=== PATIENT | male | born 1925 | race Caucasian/White ===

== ENCOUNTER 2017-02-16 08:11 | Emergency (ER) | payer MEDICARE, OTHER ==
[2017-02-16] MEDS ORDERED: Lidocaine 1% (PF) 30 ML VIAL ONE (08:26)
[2017-02-16 09:04] LABS: #Basophils 0.1 thou/uL (0.0-0.2); #Eosinphils 0.2 thou/uL (0.0-0.7); #Lymphocytes 2.3 thou/uL (1.20-3.40); #Monocytes 0.6 thou/uL (0.11-0.59); %Monocytes 7.4 % (0.0-10.0); Mean Platelet Volume 7.4 fL (7.4-10.4); Red Blood Cell (RBC) Count 4.57 mill/uL (4.70-6.10); White Blood Cell (WBC) Count 8.3 thou/uL (4.8-10.8)
[2017-02-16 09:11] LABS: Prothrombin Time 13.6 SEC (12.0-14.7)
[2017-02-16 09:38] LABS: Anion Gap 15 mmol/L (10-20); BUN (Urea Nitrogen) 23 mg/dL (8.4-25.7); CK (CPK) 46 U/L (30-200); Calc. Creatinine Clearance 0 mL/min (70-130); Calcium 9.1 mg/dL (7.8-10.44); Carbon Dioxide 27 mmol/L (23-31); Chloride 102 mmol/L (98-107); Estimated GFR-MDRD 73
[2017-02-16 09:49] LABS: Troponin I Less than 0.010 ng/mL (< 0.028)
[2017-02-16] MEDS ORDERED: cloNIDine HCl 0.1 MG TAB ONE (11:32)
--- NOTE | 2017-02-16 11:39 | CT ---
CT BRAIN WITHOUT CONTRAST: HISTORY: An 89-year-old with a history of fall. Trauma to head. FINDINGS: CT brain is obtained. There is diffuse cortical atrophy noted. A small left parietal scalp hematoma is seen. No evidence of acute intracranial masses, hemorrhages, strokes, or contusions seen. No underlying c alvarial fracture is seen. IMPRESSION: 1. Left parietal scalp hematoma. 2. Diffuse cortical atrophy and deep white matter ischemic changes. 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 POS: [facility]
[2017-02-16 11:41] LABS: Bilirubin Negative (Negative); Blood, Urine Negative (Negative); Glucose, Urine (Dipstick) Negative (Negative); Ketone, Urine Negative (Negative); Nitrite Negative (Negative); Protein, Urine (Dipstick) Negative (Neg-Trace); Urobilinogen 0.2 mg/dL (0.2-1.0)
--- NOTE | 2017-02-16 11:48 | CT ---
NONCONTRAST ENHANCED CT IMAGES PELVIS: HISTORY: Trauma, right hip pain. FINDINGS: Noncontrast enhanced CT images of the pelvis demonstrate no evidence of right hip fractures, subluxa tions, or bony lesions. L5-S1 intervertebral disk space desiccation is seen. IMPRESSION: No evidence of right hip fracture is seen. POS: [facility]
--- NOTE | 2017-02-16 11:56 | CT ---
CT CERVICAL SPINE: HISTORY: Trauma, fall. FINDINGS: Axial images are obtained with coronal and sagittal reconstructions. CT images cervical spine demonstrate disk space height loss with anterior and posterior osteophytes and disk degeneration at C3-4, C4-5, C5-6, and C6-7. This is compatible with changes of spondylosis . The neural foramen demonstrate multilevel midcervical neural foraminal narrowing due to uncoverte bral osteophyte hypertrophy. No evidence of acute cervical spine fracture is seen. IMPRESSION: Changes of spondylosis with no evidence of acute cervical spine abnormality seen. POS: [facility]
== END 2017-02-16 12:25 | disposition home or self-care (01) ==
LOC: ERS 08:11
DX: S01.01XA Laceration without foreign body of scalp, initial encounter (principal); I10 Essential (primary) hypertension; F41.9 Anxiety disorder, unspecified; Z87.891 Personal history of nicotine dependence; Z79.899 Other long term (current) drug therapy; Z79.82 Long term (current) use of aspirin; W01.198A Fall on same level from slipping, tripping and stumbling with subsequent striking against other object, initial encounter; Y93.01 Activity, walking, marching and hiking; Y92.59 Other trade areas as the place of occurrence of the external cause
CPT/HCPCS: 12002; 36415; 51701; 70450; 72125; 72192; 80048; 81003; 82553; 84484; 85025; 85610; 85730; 96374; J0360; J2001

== ENCOUNTER 2017-10-11 09:32 | Emergency (ER) | payer MEDICARE, OTHER ==
[2017-10-11 10:14] LABS: #Basophils 0.1 thou/uL (0.0-0.2); #Eosinphils 0.3 thou/uL (0.0-0.7); #Lymphocytes 2.6 thou/uL (1.20-3.40); #Monocytes 0.6 thou/uL (0.11-0.59); #Neutrophils 4.3 thou/uL (1.40-6.50); %Basophils 0.8 % (0.0-1.0); %Eosinophils 3.8 % (0.0-10.0); %Lymphocytes 32.9 % (21.0-51.0); %Monocytes 7.8 % (0.0-10.0); %Neutrophils 54.7 % (42.0-75.0); Hemoglobin 14.4 g/dL (14.0-18.0); Mean Corpuscular HGB CONC 33.8 g/dL (32.0-36.0); Mean Corpuscular Volume 94.6 fl (80.0-94.0); Mean Platelet Volume 7.4 fL (7.4-10.4); Platelet Count 249 thou/uL (130-400); RBC Distribution Width 12.2 % (11.5-14.5); White Blood Cell (WBC) Count 7.8 thou/uL (4.8-10.8)
[2017-10-11 10:31] LABS: ALT (SGPT) 17 U/L (8-55); AST (SGOT) 17 U/L (5-34); Albumin 4.2 g/dL (3.4-4.8); Alkaline Phosphatase 77 U/L (40-150); Anion Gap 8 mmol/L (10-20); BUN (Urea Nitrogen) 17 mg/dL (8.4-25.7); Bilirubin, Total 0.9 mg/dL (0.2-1.2); CK (CPK) 23 U/L (30-200); Calc. Creatinine Clearance 0 mL/min (70-130); Calcium 9.7 mg/dL (7.8-10.44); Carbon Dioxide 30 mmol/L (23-31); Chloride 103 mmol/L (98-107); Estimated GFR-MDRD 77; Globulin 3.5 g/dL (2.4-3.5); Glucose 106 mg/dL (83-110); Lipase 11 U/L (8-78); Potassium 3.8 mmol/L (3.5-5.1); Protein, Total 7.7 g/dL (5.8-8.1); Sodium 137 mmol/L (136-145)
[2017-10-11 10:33] LABS: CKMB 0.5 ng/mL (0-6.6); Troponin I 0.011 ng/mL (< 0.028)
[2017-10-11 10:45] LABS: Bilirubin Negative (Negative); Blood, Urine Negative (Negative); Clarity CLEAR (Clear); Glucose, Urine (Dipstick) Negative (Negative); Leukocyte Negative (Negative); Nitrite Negative (Negative); Protein, Urine (Dipstick) Negative (Neg-Trace); Specific Gravity, Urine 1.016 (1.002-1.036)
--- NOTE | 2017-10-11 11:38 | CT ---
CT OF BRAIN PERFORMED WITHOUT CONTRAST ENHANCEMENT: Date: 10/11/17 HISTORY: Altered mental status. COMPARISON: 02/16/17. FINDINGS: There is generalized ventricular and sulcal prominence with decreased attenuation of the periventricu lar white matter and what appears to be an old lacunar infarct in the right periventricular white mat ter. No signs of intracerebral hemorrhage or extra-axial fluid collections. Mastoid air cells and vis ualized sinuses are clear. IMPRESSION: No acute intracranial abnormalities. POS: [facility]
--- NOTE | 2017-10-11 11:57 | RAD ---
RADIOGRAPH CHEST 1 VIEW: HISTORY: 89-year-old male with acute stroke. FINDINGS: The thoracic aorta is tortuous and ectatic. There is no evidence of air space density, pneumothorax, or pulmonary edema. The lateral costophrenic angles are sharp. There is a focal infiltrate-like de nsity at the medial aspect of the right lower lung zone. This is similar to appearance on prior study of 08/12/07, and is presumably chronic. IMPRESSION: 1. No acute pulmonary findings. 2. Ectasia of thoracic aorta. sha crowe POS: [facility]
== END 2017-10-11 11:45 | disposition home or self-care (01) ==
LOC: ERS 09:32
DX: R41.82 Altered mental status, unspecified (principal); M19.90 Unspecified osteoarthritis, unspecified site; I10 Essential (primary) hypertension; F03.90 Unspecified dementia, unspecified severity, without behavioral disturbance, psychotic disturbance, mood disturbance, and anxiety; F41.9 Anxiety disorder, unspecified; Z86.73 Personal history of transient ischemic attack (TIA), and cerebral infarction without residual deficits; Z87.891 Personal history of nicotine dependence; Z79.02 Long term (current) use of antithrombotics/antiplatelets; Z79.899 Other long term (current) drug therapy
CPT/HCPCS: 36416; 51701; 70450; 71045; 80053; 81003; 82140; 82550; 82553; 83690; 84443; 84484; 85025; 93005